=== PATIENT | male | born 1995 | race Caucasian/White ===

== ENCOUNTER 2021-08-18 11:43 | Emergency (ER) | payer BC ==
[~2021-08-18] VITALS: Ht 188 cm; Wt 77.0 kg
--- NOTE | 2021-08-18 12:03 | ED General ---
General Chief Complaint: COVID19 Suspect/Confirmed Stated Complaint: COVID POSITIVE,FEVER,COUGH,SOB,VOMITING Source of Information: Patient Exam Limitations: No Limitations History of Present Illness Date Seen by Provider: Aug 18, 2021 Time Seen by Provider: 12:01 Initial Comments To ER with fever cough short of breath vomiting headache unable to keep fluids down. He tested positive for Covid on the day that he became symptomatic which was 08/12/2020. He had a [employer] vaccine. Otherwise healthy only taking Sia. Has been using Tylenol and ibuprofen for fevers. No headache currently feels like he should be getting better at this point. He does report that yesterday he called EMS because he had rapid breathing and then developed tingling throughout his entire body and then developed cramps and spasms of his hands. He felt very anxious. Ultimately was not transported to the hospital as EMS was able to help transition coach his breathing and calm him down. Timing/Duration: 1 Week Severity: Moderate Associated Systoms: Cough, Fever/Chills, Headaches, Malaise, Nausea/Vomiting, Weakness Allergies and Home Medications Allergies Coded Allergies: grey (Verified Allergy, Unknown, 08/18/21) Uncoded Allergies: nuts (Allergy, Unknown, 08/18/21) Patient Home Medication List Home Medication List Reviewed: Yes Azithromycin (Azithromycin) 250 Mg Tablet, 250 MG PO UD Prescribed by: KEVIN PAULSON on 08/18/21 1259 Dexamethasone (Dexamethasone) 6 Mg Tablet, 6 MG PO DAILY Prescribed by: KEVIN PAULSON on 08/18/21 1256 Lorazepam (Ativan) 0.5 Mg Tablet, 0.5 MG PO BID PRN for ANXIETY Prescribed by: KEVIN PAULSON on 08/18/21 1257 Ondansetron (Ondansetron Odt) 8 Mg Tab.rapdis, 8 MG PO Q6H PRN for NAUS EA/VOMITING Prescribed by: KEVIN PAULSON on 08/18/21 1251 Review of Systems Review of Systems Constitutional: see HPI, chills, diaphoresis, fever, malaise, weakness EENTM: see HPI Respiratory: see HPI, cough Cardiovascular: no symptoms reported Genitourinary: no symptoms reported Musculoskeletal: no symptoms reported Skin: no symptoms reported Psychiatric/Neurological: No Symptoms Reported Hematologic/Lymphatic: No Symptoms Reported Immunological/Allergic: no symptoms reported Physical Exam Vital Signs Vital Signs - First Documented 1/9/22 11:49 Temp 37.7 B/P (MAP) 163/88 (113) Pulse Ox 95 O2 Delivery Room Air Capillary Refill : Height, Weight, BMI Height: '" Weight: lbs. oz. kg; BMI Method: General Appearance: No Apparent Distress, WD/WN, Other (No distress 95% room air) Eyes: Bilateral Eye Normal Inspection, Bilateral Eye PERRL, Bilateral Eye EOMI HEENT: PERRL/EOMI Neck: Full Range of Motion, Normal Inspection Respiratory: Normal Breath Sounds, No Accessory Muscle Use, No Respiratory Distress Cardiovascular: Normal Peripheral Pulses, Tachycardia Gastrointestinal: Non Tender, Soft Extremity: Normal Capillary Refill, Normal Inspection Neurologic/Psychiatric: Alert, Oriented x3 Skin: Normal Color, Warm/Dry Progress/Results/Core Measures Suspected Sepsis SIRS Temperature: Pulse: Respiratory Rate: Laboratory Tests 08/18/21 12:00: White Blood Count 9.4 Blood Pressure / Mean: Laboratory Tests 08/18/21 12:00: Creatinine 0.80, Platelet Count 92L, Total Bilirubin 0.7 Results/Orders Lab Results Laboratory Tests Test 08/18/21 12:00 Range/Units White Blood Count 9.4 4.3-11.0 10^3/uL Red Blood Count 5.71 H 4.30-5.52 10^6/uL Hemoglobin 16.7 13.3-17.7 g/dL Hematocrit 48 40-54 % Mean Corpuscular Volume 83 80-99 fL Mean Corpuscular Hemoglobin 29 25-34 pg Mean Corpuscular Hemoglobin Concent 35 32-36 g/dL Red Cell Distribution Width 12.0 10.0-14.5 % Platelet Count 92 L 130-400 10^3/uL Mean Platelet Volume 12.5 H 9.0-12.2 fL Immature Granulocyte % (Auto) 0 % Neutrophils (%) (Auto) 89 H 42-75 % Lymphocytes (%) (Auto) 7 L 12-44 % Monocytes (%) (Auto) 4 0-12 % Eosinophils (%) (Auto) 0 0-10 % Basophils (%) (Auto) 0 0-10 % Neutrophils # (Auto) 8.3 H 1.8-7.8 10^3/uL Lymphocytes # (Auto) 0.7 L 1.0-4.0 10^3/uL Monocytes # (Auto) 0.3 0.0-1.0 10^3/uL Eosinophils # (Auto) 0.0 0.0-0.3 10^3/uL Basophils # (Auto) 0.0 0.0-0.1 10^3/uL Immature Granulocyte # (Auto) 0.0 0.0-0.1 10^3/uL Neutrophils % (Manual) 87 % Lymphocytes % (Manual) 7 % Monocytes % (Manual) 5 % Atypical Lymphocytes 1 % Percent Immature Platelet Fraction 12.3 H 0.0-7.6 % Blood Morphology Comment NORMAL D-Dimer 0.44 0.00-0.49 UG/ML Sodium Level 136 135-145 MMOL/L Potassium Level 3.9 3.6-5.0 MMOL/L Chloride Level 102 98-107 MMOL/L Carbon Dioxide Level 20 L 21-32 MMOL/L Anion Gap 14 5-14 MMOL/L Blood Urea Nitrogen 13 7-18 MG/DL Creatinine 0.80 0.60-1.30 MG/DL Estimat Glomerular Filtration Rate 118 BUN/Creatinine Ratio 16 Glucose Level 125 H 70-105 MG/DL Calcium Level 9.0 8.5-10.1 MG/DL Corrected Calcium 8.8 8.5-10.1 MG/DL Total Bilirubin 0.7 0.1-1.0 MG/DL Aspartate Amino Transf (AST/SGOT) 20 5-34 U/L Alanine Aminotransferase (ALT/SGPT) 31 0-55 U/L Alkaline Phosphatase 59 40-136 U/L C-Reactive Protein High Sensitivity 15.58 H 0.00-0.50 MG/DL Total Protein 7.2 6.4-8.2 GM/DL Albumin 4.2 3.2-4.5 GM/DL Procalcitonin 1.41 H <0.10 NG/ML My Orders Orders - KEVIN PAULSON REHABILITATION PROGRAM COORDINATOR Cbc With Automated Diff (08/18/21 11:56) Comprehensive Metabolic Panel (08/18/21 11:56) Hs C Reactive Protein (08/18/21 11:56) Chest 1 View, Ap/Pa Only (08/18/21 11:56) Ed Iv/Invasive Line Start (08/18/21 11:56) Fibrin Degradation Products (08/18/21 11:56) Procalcitonin (Pct) (08/18/21 11:56) Lactated Ringers (Lr 1000 Ml Iv Solution (08/18/21 12:15) Ondansetron Injection (Zofran Injectio (08/18/21 12:15) Manual Differential (08/18/21 12:00) Medications Given in ED Current Medications Medications Dose Ordered Sig/Edgardo Route Start Time Stop Time Status Last Admin Dose Admin Ondansetron HCl 8 mg ONCE ONCE IVP 08/18/21 12:15 08/18/21 12:16 DC 08/18/21 12:15 8 MG Vital Signs/I&O 08/18/21 11:49 Temp 37.7 B/P (MAP) 163/88 (113) Pulse Ox 95 O2 Delivery Room Air Capillary Refill : Departure Communication (Admissions) Family Conversation [phone] his relative hypoxia at 94% on room air, quite elevated CRP, dexamethasone may be of some value in his case. I will give him a short course. Ativan will be given for his anxiety on a as needed basis and with the pneumonia and elevated procalcitonin I will put him on azithromycin as well. NAME: PAPI ALVARADO [facility] REC#: [id number] PT STATUS: REG ER : 1995 PHYSICIAN: KEVIN PAULSON APRN ADMIT DATE: 08/18/21/ER Draft Date of Exam:08/18/21 CHEST 1 VIEW, AP/PA ONLY CHEST 1 VIEW, AP/PA ONLY Indication: Fever Comparison: None available. Findings: Patchy bibasilar pulmonary opacities are greater on the left. No pleural effusion or pneumothorax. Normal cardiomediastinal silhouette. Impression: 1. Bibasilar pulmonary opacities are likely due to multifocal pneumonia, and have an appearance that is typical for COVID 19. Report was faxed to [facility] by jacquelyn at 12:29PM. Dictated on workstation # [id number] Dict: 08/18/21 1223 Trans: 08/18/21 1229 JACQUELYN [id number] Interpreted by: CRISTINA RODRIGUEZ MD Electronically signed by: Impression Primary Impression: COVID-19 Disposition: HOME, SELF-CARE Condition: Stable Admissions Decision to Admit Reason: Admit from ER (General) Decision to Admit/Date: Aug 18, 2021 Time/Decision to Admit Time: 12:02 Departure-Patient Inst. Decision time for Depature: 12:49 Referrals: NO,LOCAL PHYSICIAN (PCP/Family) Primary Care Physician Patient Instructions: COVID-19 Overview Add. Discharge Instructions: 1. Continue Tylenol and ibuprofen per fever or pain control. Nausea medication as needed. Return to ER for any concerns. All discharge instructions reviewed with patient and/or family. Voiced understanding. Scripts Azithromycin (Azithromycin) 250 Mg Tablet 250 MG PO UD, #6 TAB TAKE 2 TABLETS ON DAY ONE THEN TAKE 1 TABLET DAILY FOR FOUR MORE DAYS Prov: KEVIN PAULSON APRN 08/18/21 Lorazepam (Ativan) 0.5 Mg Tablet 0.5 MG PO BID PRN for ANXIETY for 7 Days, #10 TAB Prov: KEVIN PAULSON APRN 08/18/21 Dexamethasone (Dexamethasone) 6 Mg Tablet 6 MG PO DAILY, #5 TAB Prov: KEVIN PAULSON APRN 08/18/21 Ondansetron (Ondansetron Odt) 8 Mg Tab.rapdis 8 MG PO Q6H PRN for NAUSEA/VOMITING, #10 TAB Prov: KEVIN PAULSON APRN 08/18/21 Work/School Note: Work Release Form Date Seen in the Emergency Department: Aug 18, 2021 Return to Work: Aug 23, 2021 KEVIN PAULSON APRN Aug 18, 2021 12:02
[2021-08-18 12:14] LABS: BASOPHILS % (AUTO) 0 % (0-10); EOSINOPHILS % (AUTO) 0 % (0-10)
[2021-08-18] MEDS ORDERED: LACTATED RINGERS 1,000 ML IV SCH (12:15)
[2021-08-18] MEDS ORDERED: ONDANSETRON 4 MG/2 ML (SDV) Z0FRAN IVP ONE (12:15)
[2021-08-18 12:16] LABS: HEMATOCRIT 48 % (40-54); HEMOGLOBIN 16.7 g/dL (13.3-17.7); LYMPHOCYTES # (AUTO) 0.7 10^3/uL (1.0-4.0); LYMPHOCYTES % (AUTO) 7 % (12-44); MEAN CORPUSCULAR HEMOGLOBIN 29 pg (25-34); MEAN CORPUSCULAR HGB CONC 35 g/dL (32-36); MEAN CORPUSCULAR VOLUME 83 fL (80-99); MEAN PLATELET VOLUME 12.5 fL (9.0-12.2); MONOCYTES # (AUTO) 0.3 10^3/uL (0.0-1.0); MONOCYTES % (AUTO) 4 % (0-12); NEUTROPHILS # (AUTO) 8.3 10^3/uL (1.8-7.8); NEUTROPHILS % (AUTO) 89 % (42-75); PLATELET COUNT 92 10^3/uL (130-400); WHITE BLOOD COUNT 9.4 10^3/uL (4.3-11.0)
[2021-08-18 12:25] LABS: ALBUMIN 4.2 GM/DL (3.2-4.5); POTASSIUM 3.9 MMOL/L (3.6-5.0)
[2021-08-18 12:28] LABS: TOTAL PROTEIN 7.2 GM/DL (6.4-8.2)
[2021-08-18 12:29] LABS: BILIRUBIN,TOTAL 0.7 MG/DL (0.1-1.0)
--- NOTE | 2021-08-18 12:30 | Diagnostic Imaging Report ---
CHEST 1 VIEW, AP/PA ONLY Indication: Fever Comparison: None available. Findings: Patchy bibasilar pulmonary opacities are greater on the left. No pleural effusion or pneumothorax. Normal cardiomediastinal silhouette. Impression: 1. Bibasilar pulmonary opacities are likely due to multifocal pneumonia, and have an appearance that is typical for COVID 19. Report was faxed to [facility] by audi at 12:29PM. Dictated by: Dictated on workstation # [id number]
[2021-08-18 12:31] LABS: CREATININE SERUM 0.8 MG/DL (0.60-1.30)
[2021-08-18 12:42] LABS: ATYPICAL LYMPHOCYTES 1 %; LYMPHOCYTES % (MANUAL) 7 %; MONOCYTES % (MANUAL) 5 %; NEUTROPHILS % (MANUAL) 87 %
[2021-08-18 12:43] LABS: RBC MORPH NORMAL
[2021-08-18] MEDS ORDERED: ONDA8TAB13 PO (12:51)
[2021-08-18] MEDS ORDERED: LORA-404 PO (12:56)
[2021-08-18] MEDS ORDERED: DEXA6TAB PO (12:56)
[2021-08-18] MEDS ORDERED: AZIT250T12 PO (12:59)
[2021-08-18 13:30] VITALS: BP 126/79
== END 2021-08-18 13:53 | disposition home or self-care (01) ==
LOC: ER 11:45
DX: U07.1 COVID-19 (principal)
CPT/HCPCS: 36415; 71045; 80053; 84145; 85007; 85027; 85379; 86141